=== PATIENT | male | born 1975 | race American Indian/Alaskan Native ===

== ENCOUNTER 2016-03-22 19:41 | Emergency (ER) | payer SELFPAY ==
[2016-03-23] MEDS ORDERED: TORADOL IM ONE (02:44)
[2016-03-23] MEDS ORDERED: FLEXERIL PO ONE (02:45)
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
[2016-03-23 04:59] VITALS: BP 118/78
--- NOTE | 2016-03-23 08:24 | XRay Report ---
LUMBAR SPINE RADIOGRAPHS: INDICATION: Lower back pain. COMPARISON: None similar. FINDINGS: AP and lateral lumbar spine radiographs demonstrate preserved vertebral body stature, alignment and disc heights. Nonobstructive bowel gas pattern. Normal bilateral SI joints. Clear visualized lung bases. CONCLUSION: No acute lumbar radiographic abnormality. Thank you for the opportunity to participate in this patient's care.
[2016-03-23] MEDS ORDERED: PROVENTIL IH ONE (15:25)
== END 2016-03-23 04:59 | disposition home or self-care (01) ==
LOC: ED 19:41
DX: M54.5 Low back pain (principal); G89.29 Other chronic pain
CPT/HCPCS: 72100; 96372; 99283; J1885

== ENCOUNTER 2016-04-09 05:34 | Emergency (ER) | payer OTHER ==
[2016-04-09 06:42] VITALS: BP 106/65
[2016-04-09 06:56] LABS: Anion Gap 17 mmol/L; BUN/Creatinine Ratio 11.42; Blood Urea Nitrogen 8 mg/dL (9-20); Calcium 8.5 mg/dL (8.4-10.2); Carbon Dioxide 26 mmol/L (22-30); Chloride 102.4 mmol/L (98-107); Glucose 128 mg/dL (75-100); Potassium 3.7 mmol/L (3.6-5.0); Sodium 142 mmol/L (137-145)
[2016-04-09 06:57] LABS: Basophils % (Auto) 0.3 % (0.0-1.8); Eosinophils % (Auto) 0.3 % (0.0-4.3); Hematocrit 42.8 % (35.5-45.6); Mean Corpuscular HGB Conc 33 % (32-34); Mean Corpuscular Hemoglobin 29 pg (28-32); Mean Corpuscular Volume 89 fl (84-94); Platelet Count 202 K/mm3 (140-440); Red Cell Distribution Width 13.9 % (13.2-15.2); White Blood Count 6.5 K/mm3 (4.5-11.0)
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
[2016-04-09] MEDS ORDERED: MOTRIN PO ONE (07:48)
[2016-04-09] MEDS ORDERED: XYLOCAINE MPF 2% INFILTRATI ONE (07:48)
[2016-04-09] MEDS ORDERED: XYLOCAINE 1% MPF 5 mL ONE (07:54)
[2016-04-09] MEDS ORDERED: TRIPLE ANTIBIOTIC TP ONE ×2 (09:20→09:22)
--- NOTE | 2016-04-09 09:47 | XRay Report ---
FINAL REPORT PROCEDURE: XR HAND 2V RT TECHNIQUE: AP and lateral views HISTORY: lac to 5th digit Rt Hand COMPARISON: None FINDINGS: There is no evident fracture, blastic or lytic lesion. There is no dislocation. Joint spaces are maintained. Bandage overlies the 5th digit. IMPRESSION: No fracture
== END 2016-04-09 09:34 | disposition home or self-care (01) ==
LOC: ED 05:34
DX: S61.216A Laceration without foreign body of right little finger without damage to nail, initial encounter (principal); W45.8XXA Other foreign body or object entering through skin, initial encounter; Y93.9 Activity, unspecified; Y92.9 Unspecified place or not applicable; Y99.9 Unspecified external cause status
CPT/HCPCS: 36415; 70450; 80048; 85025; A6250

== ENCOUNTER → 2016-04-18 | Emergency (ER) | payer SELFPAY ==
[2016-04-18 20:29] VITALS: BP 148/80
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
== END | disposition home or self-care (01) ==
LOC: ED 20:09
DX: Z48.02 Encounter for removal of sutures (principal); T81.31XA Disruption of external operation (surgical) wound, not elsewhere classified, initial encounter

== ENCOUNTER 2019-05-13 14:12 | Emergency (ER) | payer SELFPAY ==
[2019-05-13 15:26] VITALS: BP 147/107
--- NOTE | 2019-05-13 15:26 | Emergency Department Report ---
Chief Complaint: Skin Rash Stated Complaint: RASH Time Seen by Provider: 05/13/19 15:21 - HPI History of Present Illness: pt presents with a diffuse rash that began a week ago. he states he has been scratching. he has not used anything for it. states he put cocoa butter gel. no fever, no n/v/d. no allergies to meds. states he began using axe body fragrance. PMHx none. Vitals with slightly elevated BP, discussed to follow up with PCP, not having any symptoms related to BP on exam: Non toxic appearing, no acute distress atraumatic, normocephalic normal appearance of the eyes, EOMI, no periorbital edema or ecchymosis moist mucus membranes no angioedema regular heart rate and rhythm, no gallops, no rubs, no murmurs breath sounds are clear bilaterally, no w/r/r, no stridor A&O x4 skin is warm, dry, very small erythematous papules present to the neck and chest region, small amount to the lower back, no blistering, no drainage, no scaling, no excoriations, no skin denuding Examination consistent with contact dermatitis advisd pt please use hydrocortisone ointment over the counter, use it three times a day. do not use anything with a fragrance. use non scented soaps/detergents. follow up with a primary care doctor. return to the emergency room for any new or worsening symptoms. Discussed symptomatic treatment with patient Advised to be reexamined by primary care physician Discussed strict return precautions Medical screening examination performed there is no threat to life or limb at this time MSE screening note: Focused history and physical exam performed. ED Disposition for MSE Clinical Impression: Contact dermatitis Qualifiers: Contact dermatitis type: unspecified Contact dermatitis trigger: unspecified trigger Qualified Code(s): L25.9 - Unspecified contact dermatitis, unspecified cause Disposition: Z- MED SCREENING EXAM-LEFT Is pt being admited?: No Does the pt Need Aspirin: No Condition: Stable Instructions: Contact Dermatitis (ED) Additional Instructions: please use hydrocortisone ointment over the counter, use it three times a day. do not use anything with a fragrance. use non scented soaps/detergents. follow up with a primary care doctor. return to the emergency room for any new or worsening symptoms. Referrals: ANGELINE FROST MD [Staff Physician] - 3-5 Days [facility] [Outside] - 3-5 Days [facility] [Outside] - 3-5 Days Time of Disposition: 15:26 Print Language: JORDANIAN
== END 2019-05-13 15:54 | disposition left against medical advice (07) ==
LOC: ED 14:12
DX: L25.9 Unspecified contact dermatitis, unspecified cause (principal)
CPT/HCPCS: 99281